=== PATIENT | female | born 1970 | race Caucasian/White ===

== ENCOUNTER → 2017-10-09 07:59 | Outpatient (CLI) | payer BC, SELFPAY ==
--- NOTE | 2017-10-09 08:01 | HPBI_ITS ---
MAMMOGRAPHY - BILATERAL SCREENING REASON FOR EXAM: Female, 47 years old. Routine annual screening examination. PERTINENT HISTORY: Sister with breast cancer. Aunt with breast cancer. TECHNIQUE: Digital bilateral breast mine (3D mammographic acquisition) in the CC and MLO projections. 2-D mediolateral oblique (MLO) and craniocaudad (CC) views of both breasts were obtained. CAD: Full Field Digital Mammography with Computer Added Detection was performed. COMPARISON: Comparison is made with prior examination dated June 12, 2016 and June 07, 2015. FINDINGS: Breast Composition: The breasts are heterogeneously dense, which may obscure small masses. There are no dominant masses or suspicious calcifications. No other significant abnormalities are identified. There has been no significant change since the prior study. HPBI/SCREENING MAMM (CAD), BILAT IMPRESSION: Stable bilateral screening mammogram. Yearly follow-up mammogram recommended. (A) ASSESSMENT CATEGORY: BIRADS Category 1: Negative. A letter regarding these results will be sent to the patient by the facility within 30 days. Approximately 10% of breast cancers are not detected by mammography. A normal mammogram should not delay biopsy of a clinically suspicious abnormality. [id number] Electronically Signed: Gerard Birmingham MD at 10:53 EST Tel [phone], Service support ,
== END ==
PROVIDERS: Family Provider Family Medicine; PCP Family Medicine; Visit Provider Obstetrics & Gynecology
DX: Z12.31 Encounter for screening mammogram for malignant neoplasm of breast (principal)
CPT/HCPCS: 77063; 77067

== ENCOUNTER → 2017-10-16 14:49 | Outpatient (CLI) | payer BC, SELFPAY ==
[2017-10-21 15:51] LABS: HPV Reflexed? NOT INDICATED
== END ==
PROVIDERS: Family Provider Family Medicine; PCP Family Medicine; Visit Provider Obstetrics & Gynecology
DX: Z12.4 Encounter for screening for malignant neoplasm of cervix (principal)
CPT/HCPCS: 88175; G0145

== ENCOUNTER → 2018-10-28 10:42 | Outpatient (CLI) | payer BC, SELFPAY ==
--- NOTE | 2018-10-28 10:46 | BI_ITS ---
MAMMOGRAPHY - BILATERAL SCREENING REASON FOR EXAM: Female, 48 years old. Routine annual screening examination. PERTINENT HISTORY: Sister with breast cancer. TECHNIQUE: Digital bilateral breast mnie (3D mammographic acquisition) in the CC and MLO projections. 2-D mediolateral oblique (MLO) and craniocaudad (CC) views of both breasts were obtained. CAD: Full Field Digital Mammography with Computer Added Detection was performed. COMPARISON: Comparison is made with prior study dated October 09, 2017 and June 12, 2016. FINDINGS: Breast Composition: The breasts are heterogeneously dense, which may obscure small masses. There are no dominant masses or suspicious calcifications. There is a 1.4 cm x 1.2 cm well-defined nodule in the deep axillary region of the left breast. Correlation with ultrasound is recommended. No other significant abnormalities are identified. BI/SCREENING MAMM (CAD), BILAT IMPRESSION: 1.4 cm x 1.2 cm well-defined nodule in the deep axillary region of the left breast. Correlation with ultrasound is recommended. ASSESSMENT CATEGORY: BIRADS Category 0: Incomplete. Need additional imaging evaluation. A letter regarding these results will be sent to the patient by the facility within 30 days. Approximately 10% of breast cancers are not detected by mammography. A normal mammogram should not delay biopsy of a clinically suspicious abnormality. [id number] Electronically Signed: Gerard Birmingham, at 12:33 EST , Service support ,
== END ==
PROVIDERS: Family Provider Family Medicine; PCP Family Medicine; Referring Provider Obstetrics & Gynecology; Visit Provider Obstetrics & Gynecology
DX: Z12.31 Encounter for screening mammogram for malignant neoplasm of breast (principal)
CPT/HCPCS: 77063; 77067

== ENCOUNTER → 2018-10-30 10:21 | Outpatient (CLI) | payer BC, SELFPAY ==
--- NOTE | 2018-10-30 10:23 | US_ITS ---
STUDY: ULTRASOUND BREAST - LEFT REASON FOR EXAM: Female, 48 years old. Abnormal screening mammogram. TECHNIQUE: Axial and longitudinal images of the LEFT breast were performed with a high resolution ultrasound transducer. COMPARISON: Comparison is made with prior mammogram dated October 28, 2018. FINDINGS: LEFT Breast: The mammographic abnormality corresponds to a 1.3 cm x 1.4 cm x 0.6 cm cyst at the 2:00 position of the breast at 10 cm from the nipple. US/Breast Limited Unilateral IMPRESSION: The mammographic abnormality corresponds to a 1.3 cm x 1.4 cm x 0.6 cm cyst. Routine mammographic follow-up is recommended. ASSESSMENT CATEGORY: BIRADS Category 2: Benign. A letter regarding these results will be sent to the patient by the facility within 30 days. Electronically Signed: Gerard Birmingham, at 11:29 EST , Service support ,
== END ==
PROVIDERS: Family Provider Family Medicine; PCP Family Medicine; Referring Provider Obstetrics & Gynecology; Visit Provider Obstetrics & Gynecology
DX: R92.8 Other abnormal and inconclusive findings on diagnostic imaging of breast (principal)
CPT/HCPCS: 76642

== ENCOUNTER → 2018-11-06 12:13 | Outpatient (CLI) | payer BC, SELFPAY ==
[2018-11-10 11:09] LABS: HPV Reflexed? NOT INDICATED
== END ==
PROVIDERS: Family Provider Family Medicine; PCP Family Medicine; Referring Provider Obstetrics & Gynecology; Visit Provider Obstetrics & Gynecology
DX: Z12.4 Encounter for screening for malignant neoplasm of cervix (principal)
CPT/HCPCS: 88175; G0145

== ENCOUNTER → 2018-11-10 10:48 | Outpatient (CLI) | payer BC, SELFPAY ==
--- NOTE | 2018-11-10 11:30 | MRI_ITS ---
STUDY: BILATERAL BREAST MR WITHOUT AND WITH CONTRAST REASON FOR EXAM: Female, 48 years old. Dense breast tissue, LEFT breast cyst, sister, aunt and cousin with breast CA TECHNIQUE: Multi-sequence multi-echo imaging of both breasts was performed with a dedicated breast coil. T1-weighted and T2-weighted images were performed before the administration of contrast. T1-weighted images were also performed after the administration of Dotarem 17 IV without complications. COMPARISON: FINDINGS: RIGHT BREAST: The breast tissue is heterogeneously dense with moderate background enhancement There are no abnormal enhancing masses or areas of non-mass enhancement in the right breast. LEFT BREAST: The breast tissue is heterogeneously dense with moderate background enhancement. There are no abnormal enhancing masses or areas of non-mass enhancement in the left breast. There is a cyst in the axillary region of the right breast at 2:00 N+12 position, measures 1.2 x 0.6 cm it corresponds to the cyst noted on the ultrasound. There are no enlarged or abnormal lymph nodes. There is no abnormality in the visualized regions of the chest or liver. MRI/Breast Bilateral W/O and W IMPRESSION: There is a cyst in the axillary region of the right breast at 2:00 N+12 position, measures 1.2 x 0.6 cm it corresponds to the cyst noted on the ultrasound. There is no evidence of malignancy. CATEGORY: BIRADS Category 2: Benign. A letter regarding these results will be sent to the patient by the facility within 30 days. Electronically Signed: Richmond Lopez, at 13:58 EDT Tel , Service support ,
== END ==
PROVIDERS: Family Provider Family Medicine; PCP Family Medicine; Referring Provider Obstetrics & Gynecology; Visit Provider Obstetrics & Gynecology
DX: R92.2 Inconclusive mammogram (principal); N60.02 Solitary cyst of left breast
CPT/HCPCS: 77049; A9575; A4216; C8908

== ENCOUNTER → 2021-06-27 14:01 | Outpatient (CLI) | payer BC, SELFPAY ==
[2021-06-27 15:24] LABS: Absolute Lymphocyte Count 1.52 X10^3/uL (0.83-4.51); Absolute Neutrophil Count 4.5 X10^3/uL (2.0-7.7); Basophil# 0.04 X10^3/uL; Basophil% 0.6 % (0-1); Eosinophil# 0.14 X10^3/uL; Eosinophils% 2.1 % (0-5); Hemoglobin 14.6 g/dL (12.0-15.0); Lymphocyte # 1.52 X10^3/ul (0.83-4.51); Lymphocyte % 22.7 % (19-41); Mean Corpuscular Hgb 30.5 pg (27.0-32.0); Mean Corpuscular Volume 89.8 fL (81-99); Mean Platelet Vol. 9.8 fl (6.2-12.0); Monocyte# 0.49 X10^3/uL; Monocyte% 7.3 % (0-10); NRBC Flagged by Analyzer 0 % (0-5); Neutrophil # 4.49 X10^3/uL (2.7-7.7); Neutrophil % 67.2 % (47-70); Platelet Count 297 K/mm3 (150-450); RBC Distribution Width CV 13.2 % (11.6-14.6); RBC Distribution Width SD 43.8 fl (35.1-43.9); Red Blood Count 4.79 M/mm3 (4.2-5.4); White Blood Count 6.7 K/mm3 (4.4-11.0)
[2021-06-27 15:48] LABS: ALB/GLOB Ratio 0.9 RATIO (0.9-2.4); AST(SGOT) 11 U/L (15-37); Alanine Aminotransfer ALT/SGPT 19 U/L (13-56); Albumin, Serum 3.4 g/dL (3.2-5.0); Alkaline Phosphatase 70 U/L (45-117); Anion Gap 4 (5-15); BUN 13 mg/dL (7-18); BUN/Creat Ratio 22.9 RATIO (10-20); Calcium,Total 9.2 mg/dL (8.5-10.1); Chloride 104 mmol/L (98-107); Cholesterol 212 mg/dL (200); Creatinine, Serum 0.57 mg/dL (0.55-1.02); EST Glomerular Filtration Rate 118 mL/min (>60); Est Glom Filt Rate - Afr Amer 143 mL/min (>60); Globulin 3.9 g/dL (2.2-4.2); Glucose 123 mg/dL (74-106); High Density Lipoprotein 60 mg/dL; Potassium 4.3 mmol/L (3.5-5.1); Protein, Total 7.3 g/dL (6.4-8.2); Sodium Level 136 mmol/L (136-145); Triglycerides 80 mg/dL; Very Low Density Lipoprotein 16 mg/dL (5-40)
[2021-06-28 14:49] LABS: Hemoglobin A1c 5.2 % (3.8-5.6)
== END ==
PROVIDERS: PCP Internal Medicine; Referring Provider Internal Medicine; Visit Provider Internal Medicine
DX: Z00.00 Encounter for general adult medical examination without abnormal findings (principal); R73.9 Hyperglycemia, unspecified
CPT/HCPCS: 36415; 80053; 80061; 83036; 85025

== ENCOUNTER 2021-09-12 13:49 | Outpatient (CLI) | payer BC, SELFPAY ==
--- NOTE | 2021-09-12 14:00 | RAD_ITS ---
STUDY: XR Knee 3 Views 09/12/2021 7:46 PM REASON FOR EXAM: Female, 51 years old. PAIN TECHNIQUE: XR Knee 3 Views COMPARISON: None. FINDINGS: Normal visualized distal femur. Normal visualized proximal tibia and fibula. Normal proximal tibiofibular articulation. Normal medial femorotibial compartment. Normal lateral femorotibial compartment. Normal patellofemoral articulation. The soft tissue structures are unremarkable. RAD/Knee 3 Views IMPRESSION: There are no acute findings. Electronically Signed: Andrew Arzate MD at 19:47 EST , Service support ,
== END 2021-09-12 23:59 | disposition short-term general hospital (02) ==
LOC: RAD 13:51
PROVIDERS: PCP Internal Medicine; Referring Provider Internal Medicine; Visit Provider Internal Medicine
DX: M25.562 Pain in left knee (principal)
CPT/HCPCS: 73562

== ENCOUNTER 2021-09-14 11:33 | Outpatient (CLI) | payer BC, SELFPAY ==
[2021-09-14 12:22] LABS: Estradiol 613.7 pg/mL; Follicle Stimulating Hormone 10.6 mIU/mL; Luteinizing Hormone 27.5 mIU/mL
[2021-09-14 12:39] LABS: NATERA MAILED SPECIMEN
== END 2021-09-14 23:59 | disposition short-term general hospital (02) ==
LOC: PAVLAB 11:35
PROVIDERS: PCP Internal Medicine; Referring Provider Obstetrics & Gynecology; Visit Provider Obstetrics & Gynecology
DX: Z15.01 Genetic susceptibility to malignant neoplasm of breast (principal); Z80.3 Family history of malignant neoplasm of breast
CPT/HCPCS: 36415; 82670; 83001; 83002

== ENCOUNTER 2021-09-24 14:06 | Outpatient (CLI) | payer BC, SELFPAY ==
[2021-09-24 15:19] LABS: Estradiol 337.3 pg/mL; Follicle Stimulating Hormone 5.4 mIU/mL; Luteinizing Hormone 4.4 mIU/mL
== END 2021-09-24 23:59 | disposition short-term general hospital (02) ==
LOC: PAVLAB 14:07
PROVIDERS: PCP Internal Medicine; Referring Provider Obstetrics & Gynecology; Visit Provider Obstetrics & Gynecology
DX: N95.0 Postmenopausal bleeding (principal)
CPT/HCPCS: 36415; 82670; 83001; 83002

== ENCOUNTER 2021-10-09 13:14 | Outpatient (CLI) | payer BC, SELFPAY ==
--- NOTE | 2021-10-09 13:17 | US_ITS ---
STUDY: ULTRASOUND OF THE FEMALE PELVIS - COMPLETE REASON FOR EXAM: Female, 51 years old. Postmenopausal bleeding LMP: Unknown. TECHNIQUE: Transabdominal and Transvaginal TECHNICAL QUALITY: Adequate. COMPARISON: None. FINDINGS: The uterus is anteverted and is in a midline position. The uterus measures 5.8 x 4.0 x 3.2 cm. Normal uterine cervix. The endometrium measures 4.0 mm in thickness, and is . There is no demonstrated endometrial mass. There is no demonstrated myometrial mass. I.U.D. - The patient does not have an I.U.D. The right ovary is visualized. The right ovary measures 1.9 x 1.8 x 1.6 cm. There is a simple 1.0 cm cyst. There is normal arterial and normal venous vascularity. The left ovary is visualized. The left ovary measures 2.3 x 1.9 x 1.1 cm. There is a simple 1.8 cm cyst. There is normal arterial and normal venous vascularity. There is minimal fluid in the cul-de-sac. The bladder is incompletely distended US/Pelvic (Non ) IMPRESSION: Endometrium is sonographically normal for age. Simple bilateral ovarian cysts, short-term follow-up is recommended to ensure resolution Small amount of anechoic free fluid in the pelvis Electronically Signed: Adama Venegas MD at 17:20 EST ,
--- NOTE | 2021-10-09 13:17 | US_ITS ---
STUDY: ULTRASOUND OF THE FEMALE PELVIS - COMPLETE REASON FOR EXAM: Female, 51 years old. Postmenopausal bleeding LMP: Unknown. TECHNIQUE: Transabdominal and Transvaginal TECHNICAL QUALITY: Adequate. COMPARISON: None. FINDINGS: The uterus is anteverted and is in a midline position. The uterus measures 5.8 x 4.0 x 3.2 cm. Normal uterine cervix. The endometrium measures 4.0 mm in thickness, and is . There is no demonstrated endometrial mass. There is no demonstrated myometrial mass. I.U.D. - The patient does not have an I.U.D. The right ovary is visualized. The right ovary measures 1.9 x 1.8 x 1.6 cm. There is a simple 1.0 cm cyst. There is normal arterial and normal venous vascularity. The left ovary is visualized. The left ovary measures 2.3 x 1.9 x 1.1 cm. There is a simple 1.8 cm cyst. There is normal arterial and normal venous vascularity. There is minimal fluid in the cul-de-sac. The bladder is incompletely distended US/Transvaginal Non- IMPRESSION: Endometrium is sonographically normal for age. Simple bilateral ovarian cysts, short-term follow-up is recommended to ensure resolution Small amount of anechoic free fluid in the pelvis Electronically Signed: Adama Venegas MD at 17:20 EST ,
== END 2021-10-09 23:59 | disposition home or self-care (01) ==
PROVIDERS: PCP Internal Medicine; Referring Provider Obstetrics & Gynecology; Visit Provider Obstetrics & Gynecology
DX: N95.0 Postmenopausal bleeding (principal)
CPT/HCPCS: 76830; 76856

== ENCOUNTER → 2022-03-29 | Outpatient (CLI) | payer BC, SELFPAY ==
--- NOTE | 2022-03-29 12:32 | BI_ITS ---
MAMMOGRAPHY - BILATERAL DIAGNOSTIC REASON FOR EXAM: Female, 51 years old. Bilateral breast pain for one year. Has subsided with decrease caffeine intake. PERTINENT HISTORY: Family history of breast cancer in sister at age 35, paternal cousin at age 50 and paternal aunt at age 60. TECHNIQUE: Digital examination. Mediolateral oblique (MLO) and craniocaudad (CC) views of both breasts were obtained. 3D tomosynthesis images of both breasts were also obtained. CAD: CAD was not performed on this study. COMPARISON: 07/31/2021, 12/28/2019, 11/10/2018. FINDINGS: Breast Composition: There are scattered areas of fibroglandular density. There are no dominant masses or suspicious calcifications. No other significant abnormalities are identified. BI/DIAG MAMM W/CAD, BILAT IMPRESSION: Stable bilateral diagnostic mammogram. No suspicious lesions in either breast. One year follow-up recommended. ASSESSMENT CATEGORY: BIRADS Category 2: Benign. A letter regarding these results will be sent to the patient by the facility within 30 days. FOLLOW UP RECOMMENDATION: Yearly follow up mammogram recommended. (A) Approximately 10% of breast cancers are not detected by mammography. A normal mammogram should not delay biopsy of a clinically suspicious abnormality. Electronically Signed: Cheko Boudreaux MD at 13:27 EDT ,
== END | disposition home or self-care (01) ==
PROVIDERS: PCP Internal Medicine; Visit Provider Nurse Practitioner Women's Health
DX: R92.2 Inconclusive mammogram (principal); N64.4 Mastodynia
CPT/HCPCS: 77062; 77066; G0279

== ENCOUNTER → 2022-04-15 | Outpatient (CLI) | payer BC, SELFPAY | END | disposition home or self-care (01) | LOC: LABSPEC 12:02 | PROVIDERS: PCP Internal Medicine; Referring Provider Nurse Practitioner Women's Health; Visit Provider Nurse Practitioner Women's Health | DX: R30.0 Dysuria (principal) | CPT/HCPCS: 87086; 87088 ==

== ENCOUNTER → 2022-04-19 | Outpatient (CLI) | payer BC, SELFPAY | END | disposition home or self-care (01) | LOC: LABSPEC 13:59 | PROVIDERS: PCP Internal Medicine; Referring Provider Obstetrics & Gynecology; Visit Provider Obstetrics & Gynecology | DX: N76.0 Acute vaginitis (principal) | CPT/HCPCS: 87070; 87205 ==

== ENCOUNTER → 2022-05-16 | Outpatient (CLI) | payer BC, SELFPAY ==
[2022-05-16 15:50] LABS: Absolute Lymphocyte Count 1.77 X10^3/uL (0.83-4.51); Absolute Neutrophil Count 3.7 X10^3/uL (2.0-7.7); Basophil# 0.05 X10^3/uL; Basophil% 0.8 % (0-1); Eosinophil# 0.16 X10^3/uL; Eosinophils% 2.6 % (0-5); Hematocrit 41.3 % (37-47); Hemoglobin 13.7 g/dL (12.0-15.0); Lymphocyte # 1.77 X10^3/ul (0.83-4.51); Lymphocyte % 29.2 % (19-41); Mean Corp Hgb Conc 33.2 g/dL (32-36); Mean Corpuscular Hgb 30.6 pg (27.0-32.0); Mean Corpuscular Volume 92.4 fL (81-99); Mean Platelet Vol. 9.5 fl (6.2-12.0); Monocyte# 0.43 X10^3/uL; Monocyte% 7.1 % (0-10); NRBC Flagged by Analyzer 0 % (0-5); Neutrophil # 3.66 X10^3/uL (2.7-7.7); Neutrophil % 60.3 % (47-70); Platelet Count 269 K/mm3 (150-450); RBC Distribution Width CV 13.5 % (11.6-14.6); RBC Distribution Width SD 45.6 fl (35.1-43.9); Red Blood Count 4.47 M/mm3 (4.2-5.4); White Blood Count 6.1 K/mm3 (4.4-11.0)
[2022-05-18 09:07] LABS: V-Zoster IgG (Immunity) 562 index (Immune >165)
== END | disposition home or self-care (01) ==
LOC: LAB 15:17 → PAVLAB 15:23
PROVIDERS: PCP Internal Medicine; Referring Provider Obstetrics & Gynecology; Visit Provider Obstetrics & Gynecology
DX: B02.29 Other postherpetic nervous system involvement (principal)
CPT/HCPCS: 36415; 85025; 86787

== ENCOUNTER → 2022-11-08 | Outpatient (CLI) | payer BC, SELFPAY ==
--- NOTE | 2022-11-08 11:30 | RAD_ITS ---
STUDY: X-RAY - LUMBAR SPINE REASON FOR EXAM: Female, 52 years old. Lumbar radiculopathy. TECHNIQUE: 5 view(s) of the lumbar spine were obtained. COMPARISON: None FINDINGS: Osteopenia. Normal lumbar lordosis. There is no substantial scoliosis. There is a normal alignment of the vertebrae. Diffuse facet sclerosis. Anterior wedge compression deformity of the L1 vertebral body of approximately 40%, age undetermined. Lumbar diffuse intervertebral disc space narrowing with osteophyte formation most marked at T12-L1, L1-L2 and L5-S1. Vascular calcification. RAD/L/S Spine Min 4 Views IMPRESSION: Osteopenia with anterior wedge compression deformity of L1, age undetermined. Diffuse moderate thoracic and lumbosacral spondylosis as described. No acute abnormality or evidence of erosive changes/fusion. Electronically Signed: Cheko Boudreaux, at 14:22 EDT ,
== END | disposition home or self-care (01) ==
LOC: RAD 11:18
PROVIDERS: PCP Internal Medicine; Visit Provider Internal Medicine
DX: M54.16 Radiculopathy, lumbar region (principal)
CPT/HCPCS: 72110

== ENCOUNTER → 2022-11-28 | Outpatient (CLI) | payer BC, SELFPAY ==
--- NOTE | 2022-11-28 08:20 | BD_ITS ---
STUDY: DUAL ENERGY X-RAY ABSORPTIOMETRY / DXA REASON FOR EXAM: Female, 52 years old. Post menopausal, Compression Fracture of L1 TECHNIQUE: Bone Mineral Density (BMD) measurements of lumbar spine and bilateral hips were obtained. COMPARISON: None. FINDINGS: Lumbar Spine (L1-L4): g/cm2 (0.828) / T-score (-2.0) / Z-score (-1.0) Findings are suggestive of osteopenia with a moderate fracture risk. Left Femur Total: g/cm2 (0.862) / T-score (-0.7) / Z-score (0.0) Left Femoral Neck: g/cm2 (0.676) / T-score (-1.6) / Z-score (-0.5) Right Femur Total: g/cm2 (0.844) / T-score (-0.8) / Z-score (-0.2) Right Femoral Neck: g/cm2 (0.671) / T-score (-1.6) / Z-score (-0.6) BD/Dexa Bone Density Study IMPRESSION: The patient is considered osteopenic as outlined below according to World [place] Organization (WHO) criteria with a moderate fracture risk. Reference Information: The T-score is the number of standard deviations above or below the standard which is normal for young adults at their peak bone mineral density. The World Health Organization (WHO) interprets the T-scores as follows: Above -1 Normal bone density Between -1 and -2.5 Osteopenia Equal to / or below -2.5 Osteoporosis As a practical clinical guideline, osteopenia may be graded as follows: Mild -1 through -1.5 Moderate -1.6 through -2.0 Severe -2.1 through -2.4 The Z-score is the number of standard deviations above or below age-matched controls. A Z-score of less than -1.5 would be considered abnormal. References: 1. NIH Osteoporosis and Related Bone Diseases www osteo.org 2. International Society for Clinical Densitometry www iscd.org 3. National Osteoporosis Foundation www nof.org Electronically Signed: Gerard Birmingham MD at 10:53 EDT ,
== END | disposition home or self-care (01) ==
LOC: OPBD 08:12
PROVIDERS: PCP Internal Medicine; Referring Provider Internal Medicine; Visit Provider Internal Medicine
DX: Z78.0 Asymptomatic menopausal state (principal)
CPT/HCPCS: 77080

== ENCOUNTER → 2022-12-16 | Outpatient (CLI) | payer BC, SELFPAY ==
--- NOTE | 2022-12-16 15:23 | RAD_ITS ---
STUDY: X-RAY - SACRUM/COCCYX REASON FOR EXAM: Female, 52 years old. RECTAL PAIN TECHNIQUE: AP and lateral view(s) of the sacrum and coccyx were obtained. COMPARISON: None. FINDINGS: Normal bilateral sacroiliac joints. Normal visualized sacral ala and fused sacral bodies. Normal sacrococcygeal junction with a normal angulation. Normal coccygeal segments. IUD noted within the soft tissues slightly to the right of the midline most likely within the uterus The presacral soft tissue structures are unremarkable. RAD/Sacrum-Coccyx min 2 Views IMPRESSION: Normal x-rays of the sacrum and coccyx. Electronically Signed: Rajan Felix MD at 22:01 EDT ,
== END | disposition home or self-care (01) ==
LOC: RAD 15:20
PROVIDERS: PCP Internal Medicine; Referring Provider Anesthesiology Pain Medicine; Visit Provider Anesthesiology Pain Medicine
DX: K62.89 Other specified diseases of anus and rectum (principal)
CPT/HCPCS: 72220

== ENCOUNTER 2023-04-01 06:17 | Day surgery (SDC) | payer BC, SELFPAY ==
[2023-04-01] VITALS (11 sets, daily range): BP systolic 98–145; BP diastolic 54–131; PULSE 85–106; RESP 14–18; TEMP 36.1–36.2; O2SAT 86–98; BMI 32.5
[2023-04-01] MEDS: Lactated Ringers 1,000 ML 15 ML IV (07:07)
--- NOTE | 2023-04-01 07:30 | COLBX_PTH ---
PATIENT: ANTHONY JULIEN LOC: EN U#:[id number] AGE/SX: 52/F ROOM: RE04/01/[address]: Dr. Ray Jackson MD : 1970 BED: DIS: 04/01/2023 SPEC #: [id number] RECD: 04/01/23 09:53 STATUS: DUKE BOCANEGRA #: [id number] CONNIE: 04/01/23 07:[address]: Ray Jackson DEPT: SURGICAL PATHOLOGY RECD BY: Lara Torres ENTERED: 04/01/23 10:10 SP TYPE: COLON BX OT DR: Dr. Nataliia Heaton MD Tissues: Rectum, NOS Procedures: Surgery Specimen Level IV HEADER OPERATION: Colonoscopy with biopsies PRE-OP DIAGNOSIS: Anal or rectal pain TISSUE SUBMITTED: Rectal biopsy MICROSCOPIC DIAGNOSIS Rectum, biopsy: No pathologic change. AM:crystal 04/02/2023 MICROSCOPIC DESCRIPTION Slides are reviewed. GROSS DESCRIPTION Received in fixative is one container labeled with the patient's name and designated rectal biopsy. The specimen consists of two irregular fragments of light youssef soft tissue that in aggregate measure 0.8 x 0.3 x 0.1 cm. The specimen is totally submitted in one cassette. / SJ:crystal 04/01/2023 TC:5 CPT: 20415
--- NOTE | 2023-04-01 07:44 | PCM.HP.BLA ---
History and Physical Date of Admission: 04/01/23 Visit Reasons: COLONOSCOPY/RECTUM PAIN Chief Complaint: rectal pain Allergies No Known Allergies Allergy (Verified 03/10/23 12:56) Medications levonorgestrel 21 mcg/24 hours (8 yrs) 52 mg intrauterine device (Mirena) 1 device intrauterine ONCE 11/08/21 [History Confirmed 01/30/23] lidocaine (bulk) See Rx Instructions miscellaneous .COMPLEX 01/30/23 [History Confirmed 01/30/23] [facility] Medical History Abnormal vaginal bleeding Anal or rectal pain Compression fracture Encounter to establish care Genetic testing of female Left knee pain Lumbar radiculopathy Obesity (BMI 30-39.9) Pelvic floor dysfunction Preventative health care Rectal pain, chronic Family History Other Cancer Diabetes Heart disease Seizures Social History Smoking Status: Never smoker alcohol intake: current details: occasionally substance use type: does not use caffeine: Yes what type of physical activity do you participate in: none seatbelt use: always do you feel safe at home: Yes additional social history: - Arvind HPI HPI HPI: 52-year-old female who is seen by Dr. Nataliia Heaton on January 30, 2023 and is being referred for surgical consultation regarding anal rectal pain. A written copy of my surgical consult recommendations will return to her. She is complaining of a burning pulsing pain around her rectal area. Gabapentin and amitriptyline have been somewhat helpful. She is a diagnosis of pelvic floor dysfunction. On December 16, [address] Rajan Dumont she had sacrum and coccygeal x-rays. These were felt to be normal. November 08, 2022 she had lumbar sacral spine films showing an anterior wedge compression deformity L1 age-indeterminate. There is felt to be no acute abnormalities. She has had a previous transvaginal ultrasound on October 09, 2021 showing normal endometrium. Simple bilateral ovarian cysts. Small amount of anechoic free fluid in the pelvis. She has been seen by pain specially and according to that note the patient's also been seen by PREPRESS OPERATOR. She states she was initially diagnosed per AIR QUALITY MANAGER with shingles. She had a Cologuard that was negative. The patient's been expressly referred to exclude potential internal hemorrhoids as a source of her discomfort. A colonoscopy is being recommended. The patient has no particular pain with defecation. No bright red blood per rectum or melena. She has never had a colonoscopy. No family history of colon cancer. She has had no unexpected weight change. Of pertinence is despite 5 months of gabapentin and amitriptyline therapy she had absolutely no improvement in this discomfort ROS General General: No weight change, appetite, fatigue, colon cancer, breast cancer or weakness HEENT HEENT: No difficulty swallowing, eye injury, eye surgery, swollen glands or hoarseness Endo Endocrine: No thyroid disease, diabetes mellitus, thyroid cancer, Hair loss, heat intolerance or cold intolerance Skin Skin: No rash or changing moles Breast Breast: No left breast lump, right breast lump, nipple discharge, breast pain, abnormal mammogram, abnormal US or breast enlargement Musc Musculoskeletal: No back problems, arthritis, rheumatoid arthritis, gout or joint pain Cardio Cardiovascular: No murmur, pacemaker, heart disease, atrial fibrillation, high blood pressure, heart attack, heart stent, palpitations, shortness of breat with exertion or chest pain Psych Psychiatric: No depression, anxiety or hearing voices Resp Respiratory: No shortness of breath, No sleep apnea, No cough, No COPD, No asthma, No emphysema and No wheezing Gastro Gastrointestinal: No abdominal pain, No nausea or vomiting, No diarrhea, No constipation, No blood in stool, No acid reflux, No hemorrhoids, No ulcers, No gallbladder problem and No black,tarry stools Adilson Hematologic: No blood thinners, No blood disorders, No bleeding, No anemia and No blood clots Neuro Neurologic: No system reviewed and no additional complaints, except as documented, No as per HPI, No abnormal gait, No abnormal hearing, No abnormal movements, No abnormal speech, No behavioral changes, No burning sensations, No confusion, No convulsions, No disequilibrium, No dizziness, No localized weakness, No frequent falls, No headache(s), No lack of coordination, No loss of vision, No memory loss, No numbness, No other visual disturbances, No radicular pain, No restless legs, No sensory deficit, No syncope, No tingling, No tremor(s), No weakness and No other Exam Const General: cooperative, comfortable and no acute distress [facility] Head: normal to inspection Eyes General: appearance normal, both eyes and all related structures Neck Neck: normal visual inspection Resp Effort & Inspection: normal respiratory effort Auscultation: clear to auscultation bilaterally Cardio Rate: regular rate Rhythm: regular rhythm GI Palpation: soft and no hepatosplenomegaly Musc Cervical Spine: normal cervical lordosis Skin General: no rashes or lesions noted Neuro General: patient alert and patient oriented x3 Extrem General: no calf tenderness Psych Appearance: grossly normal Assessment and Plan Assessment and Plan (1) Anal or rectal pain: Status: Acute Plan: I recommended the patient a colonoscopy possible biopsy or polypectomy as indicated. Very careful inspection of the anal rectal area will be pursued and if random biopsies are appropriate we will pursue that as well. She has had an opportunity to ask and have questions answered. I have a lower degree of suspicion that this is represents a colorectal issue at the moment. I do recommend visual inspection and sampling if required. I appreciate the opportunity of assisting with her surgical care. Copy: Dr. Nataliia Heaton and Dr. Rajan Jackson M.D., F.A.C.S. I have examined the patient and the H&P has been reviewed. There are no clinical changes since date of exam. Ray Jackson M.D., F.A.C.S.
--- NOTE | 2023-04-01 08:14 | OP.COLON_ITS ---
Patient Name: Rosa Carpio Procedure Date: 04/01/2023 7:44 AM Date of : 1970 Age: 52 Procedure: Colonoscopy Indications: Pelvic pain Providers: Ray Jackson MD Medicines: See the Anesthesia note for documentation of the administered medications Patient Profile: Last Colonoscopy: none. The patient's first colonoscopy is today. Complications: No immediate complications. Procedure: Pre-Anesthesia Assessment: - Prior to the procedure, a History and Physical was performed, and patient medications and allergies were reviewed. The patient's tolerance of previous anesthesia was also reviewed. The risks and benefits of the procedure and the sedation options and risks were discussed with the patient. All questions were answered, and informed consent was obtained. Prior Anticoagulants: The patient has taken no previous anticoagulant or antiplatelet agents. ASA Grade Assessment: II - A patient with mild systemic disease. After reviewing the risks and benefits, the patient was deemed in satisfactory condition to undergo the procedure. After I obtained informed consent, the scope was passed under direct vision. Throughout the procedure, the patient's blood pressure, pulse, and oxygen saturations were monitored continuously. The Colonoscope was introduced through the anus and advanced to the cecum, identified by appendiceal orifice and ileocecal valve. The colonoscopy was somewhat difficult due to a tortuous colon. Successful completion of the procedure was aided by applying abdominal pressure. The patient tolerated the procedure well. The quality of the bowel preparation was good. The ileocecal valve and the appendiceal orifice were photographed. Scope In: 7:49:33 AM Scope Withdrawal Time 0 hours 9 minutes 18 seconds Scope Out: 8:06:15 AM Total Procedure Duration Time 0 hours 16 minutes 42 seconds Findings: The digital rectal exam findings include decreased sphincter tone, non-thrombosed internal hemorrhoids and internal hemorrhoids that prolapse with straining, but spontaneously regress to the resting position (Grade II). The colon (entire examined portion) appeared normal. Biopsies were taken with a cold forceps in the rectum for histology. Impression: - Decreased sphincter tone, non-thrombosed internal hemorrhoids and internal hemorrhoids that prolapse with straining, but spontaneously regress to the resting position (Grade II) found on digital rectal exam. - The entire examined colon is normal. - Biopsies were taken with a cold forceps for histology in the rectum. Recommendation: - Discharge patient to home. - Resume previous diet. - Continue present medications. - Await pathology results. - Telephone my office for pathology results in 1 week. - Repeat colonoscopy in 10 years for screening purposes. Procedure Code(s): --- Professional --- 39946, Colonoscopy, flexible; with biopsy, single or multiple CPT copyright 2017 [employer]. All rights reserved. The codes documented in this report are preliminary and upon commercial accountant review may be revised to meet current compliance requirements. Ray Jackson MD 04/01/2023 8:13:33 AM This report has been signed electronically. Number of Addenda: 0 Note Initiated On: 04/01/2023 7:44 AM
--- NOTE | 2023-04-01 08:15 | OP.CCLET_ITS ---
04/01/2023 Brent Bianchi Md Re : Colonoscopy procedure for Rosa Carpio Dear Dr. Bianchi This procedure was performed on Saturday, April 01, 2023. My impressions and recommendations are as follows: Impressions : - Decreased sphincter tone, non-thrombosed internal hemorrhoids and internal hemorrhoids that prolapse with straining, but spontaneously regress to the resting position (Grade II) found on digital rectal exam. - The entire examined colon is normal. - Biopsies were taken with a cold forceps for histology in the rectum. Recommendations : - Discharge patient to home. - Resume previous diet. - Continue present medications. - Await pathology results. - Telephone my office for pathology results in 1 week. - Repeat colonoscopy in 10 years for screening purposes. My findings are described in the full procedure note, which is enclosed. If I can be of further assistance, please feel free to contact me at Doctor phone number(s): Work: . Sincerely, Ray Jackson MD 04/01/2023 8:13:33 AM This report has been signed electronically.
== END 2023-04-01 09:31 | disposition home or self-care (01) ==
LOC: EN 06:17 → AC 06:18
PROVIDERS: PCP Internal Medicine; Referring Provider Internal Medicine; Visit Provider Surgery
PROC: 0DJD8ZZ Inspection of Lower Intestinal Tract, Via Natural or Artificial Opening Endoscopic (ICD-10-PCS; CPT 45378; principal; 2023-04-01 07:25)
DX: K64.1 Second degree hemorrhoids (principal); K64.8 Other hemorrhoids; E66.9 Obesity, unspecified
CPT/HCPCS: 45380; 88305; J7120; J2405

== ENCOUNTER → 2023-04-29 | Outpatient (CLI) | payer BC, SELFPAY ==
--- NOTE | 2023-04-29 08:20 | BI_ITS ---
MAMMOGRAPHY - BILATERAL SCREENING REASON FOR EXAM: Female, 52 years old. Routine annual screening examination. PERTINENT HISTORY: Sister with breast cancer. Aunt with breast cancer. TECHNIQUE: Digital bilateral breast rani (3D mammographic acquisition) in the CC and MLO projections. 2-D mediolateral oblique (MLO) and craniocaudad (CC) views of both breasts were obtained. CAD: Full Field Digital Mammography with Computer Added Detection was performed. COMPARISON: Comparison is made with prior study March 29, 2022 and October 28, 2018. FINDINGS: Breast Composition: The breasts are heterogeneously dense, which may obscure small masses. There are no dominant masses or suspicious calcifications. No other significant abnormalities are identified. There has been no significant change since the prior study. BI/SCRN MAMM (CAD)W/RANI BILAT IMPRESSION: Stable bilateral screening mammogram. Yearly follow-up mammogram recommended. (A) ASSESSMENT CATEGORY: BIRADS Category 1: Negative. A letter regarding these results will be sent to the patient by the facility within 30 days. Approximately 10% of breast cancers are not detected by mammography. A normal mammogram should not delay biopsy of a clinically suspicious abnormality. [id number] Electronically Signed: Gerard Birmingham MD at 11:19 EDT ,
== END | disposition home or self-care (01) ==
PROVIDERS: PCP Internal Medicine; Referring Provider Obstetrics & Gynecology; Visit Provider Obstetrics & Gynecology
DX: Z12.31 Encounter for screening mammogram for malignant neoplasm of breast (principal); Z80.3 Family history of malignant neoplasm of breast
CPT/HCPCS: 77063; 77067

== ENCOUNTER → 2023-05-05 | Outpatient (CLI) | payer BC, SELFPAY ==
[2023-05-08 10:09] LABS: HPV APTIMA, High Risk Negative (Negative)
== END | disposition home or self-care (01) ==
PROVIDERS: PCP Internal Medicine; Referring Provider Registered Nurse; Visit Provider Registered Nurse
DX: Z78.0 Asymptomatic menopausal state (principal)
CPT/HCPCS: 87624; 88175; G0145